=== PATIENT | male | born 1965 ===

== ENCOUNTER 2017-08-02 07:29 | Day surgery (SDC) | payer MEDICAID ==
[2017-08-02] MEDS ORDERED: Lactated Ringer's 1,000 ML IV ONE (08:02)
[2017-08-02] MEDS ORDERED: Lidocaine 2% MPF (5 ml) Inj ONE (09:02)
[2017-08-02] MEDS ORDERED: Propofol 10 mg/ml Inj (20 ML) ONE (09:02)
[2017-08-02 09:58] VITALS: RESP 26
[2017-08-02 10:07] VITALS: BP 102/62; PULSE 66; TEMP 97.1; O2SAT 99
== END 2017-08-02 11:18 | disposition home or self-care (01) ==
LOC: H.ENDO 07:29
PROVIDERS: ATTEND Internal Medicine Gastroenterology
DX: D64.9 Anemia, unspecified (principal); E78.5 Hyperlipidemia, unspecified; D12.2 Benign neoplasm of ascending colon; D12.0 Benign neoplasm of cecum; K21.9 Gastro-esophageal reflux disease without esophagitis; K64.8 Other hemorrhoids; K29.50 Unspecified chronic gastritis without bleeding
CPT/HCPCS: 43239; 45380; 88305; J2704; J7120